=== PATIENT | male | born 1955 | race Caucasian/White ===

== ENCOUNTER → 2019-10-10 | Outpatient (CLI) | payer MEDICARE ==
[~2019-10-10] MED LIST: ACETAMINOPHEN325 M1 PO; ASPIRIN325 PO; COLACE100 MG PO; CYCLOBENZAPRINE10 MG PO; GLUCOPHAGE500 MG PO; HYDROCODON-ACE1 EAC7 PO; LODINE500 MG PO; OXYCODONE HCL 55 MG PO; TAMSULOSIN HCL0.4 M1 PO; XANAX 0.5 MG0.5 M1 PO; XARELTO10 M1 PO
== END ==
LOC: M.ULTRA 10:28
PROVIDERS: ATTEND Internal Medicine Nephrology
DX: N18.1 Chronic kidney disease, stage 1 (principal); N28.89 Other specified disorders of kidney and ureter